=== PATIENT | male | born 1965 | race Caucasian/White ===

== ENCOUNTER 2024-05-24 17:57 | Emergency (ER) | payer SELFPAY ==
[2024-05-24] MEDS: Diphtheria,Pertussis(Acell),Tetanus Vaccine 0.5 ML Syringe IM ONE (18:41)
[2024-05-24] MEDS: Lidocaine 1% 10 ML MDV INJECT ONE (19:16)
== END 2024-05-24 20:24 | disposition home or self-care (01) ==
LOC: MW.ED 17:57
DX: S61.210A Laceration without foreign body of right index finger without damage to nail, initial encounter (principal); W29.0XXA Contact with powered kitchen appliance, initial encounter; Z75.8 Other problems related to medical facilities and other health care
CPT/HCPCS: 12001; 73140-26-F6; 73140-F6; 90471; 90715; 99283-25; J3490